=== PATIENT | male | born 1955 | race Asian ===

== ENCOUNTER 2017-09-15 02:27 | Emergency (ER) | payer MEDICAID ==
[~2017-09-15] VITALS: Ht 167.6 cm; Wt 81.6 kg
[2017-09-15 02:31] VITALS: BP 119/93
[2017-09-15] MEDS ORDERED: HYDROCODONE/APAP 10/325MG 1 EA TABLET ONE (02:56)
[2017-09-15] MEDS ORDERED: HYDROCODONE/APAP 10/325MG 1 EA TABLET PO ONE (03:00)
== END 2017-09-15 03:21 | disposition home or self-care (01) ==
LOC: ER 02:30
DX: G89.29 Other chronic pain (principal); I10 Essential (primary) hypertension; Z88.8 Allergy status to other drugs, medicaments and biological substances
CPT/HCPCS: 99282; A4606; Z7610

== ENCOUNTER 2017-10-07 15:10 | Emergency (ER) | payer MEDICAID, OTHER ==
[~2017-10-07] VITALS: Ht 165.1 cm; Wt 83.9 kg
[2017-10-07 15:21] VITALS: BP 123/75
[2017-10-07] MEDS ORDERED: IBUPROFEN 600 MG TABLET PO ONE ×2 (15:35→16:00)
[2017-10-07] MEDS ORDERED: CYCLOBENZAPRINE 10 MG TABLET ONE (15:35)
[2017-10-07] MEDS ORDERED: CYCLOBENZAPRINE 10 MG TABLET PO ONE (16:00)
== END 2017-10-07 15:41 | disposition home or self-care (01) ==
LOC: ER 15:17
DX: M13.872 Other specified arthritis, left ankle and foot (principal); M13.871 Other specified arthritis, right ankle and foot; M46.96 Unspecified inflammatory spondylopathy, lumbar region; G89.29 Other chronic pain; Z88.8 Allergy status to other drugs, medicaments and biological substances; Z60.2 Problems related to living alone
CPT/HCPCS: 99283; A4606; Z7610

== ENCOUNTER 2020-10-21 15:33 | Emergency (ER) | payer OTHER ==
[~2020-10-21] VITALS: Ht 167.6 cm; Wt 95.3 kg
--- NOTE | 2020-10-21 17:08 | NUR ---
"Depressed/Suicidal Ideation- run into traffic". PT AAOX4, VSS. RR EVEN & UNLABORED. DENIES CP, SOB, DIZZINESS, N/V/D AT THIS TIME. PT SEEN & EVAL'D BY DR. MAHARAJ. PT CALM & COOPERATIVE, NAD NOTED AT THIS TIME. SITTER AT BS & WILL CONT TO MONITOR.
[2020-10-21 17:25] LABS: BASOPHILS % (AUTO) 0.6 % (0.0-2.0); EOSINOPHILS % (AUTO) 1.8 % (0.0-6.0); HEMATOCRIT 44 % (39-51); HEMOGLOBIN 14.5 g/dL (13.5-17.5); LYMPHOCYTES # (AUTO) 0.4 K/uL (0.8-4.8); LYMPHOCYTES % (AUTO) 6.4 % (20.0-44.0); MEAN CORPUSCULAR HGB CONC 33 g/dl (31.0-36.0); MEAN CORPUSCULAR VOLUME 91 fL (80-96); MONOCYTES # (AUTO) 0.5 K/uL (0.1-1.30); MONOCYTES % (AUTO) 7.6 % (2.0-12.0); NEUTROPHILS # (AUTO) 5.7 K/uL (1.8-8.9); NEUTROPHILS % (AUTO) 83.6 % (43.0-81.0); PLATELET COUNT (AUTO) 375 K/uL (150-450); RED BLOOD CELL COUNT(AUTO) 4.86 MIL/uL (4.5-6.0); WHITE BLOOD COUNT (AUTO) 6.8 K/uL (4.3-11.0)
[2020-10-21 17:33] LABS: CALCIUM, SERUM 9.4 mg/dL (8.5-10.1); CARBON DIOXIDE 23 mmol/L (21-32); CHLORIDE 106 mmol/L (98-107); GLUCOSE 105 mg/dL (74-106); POTASSIUM 4.2 mmol/L (3.5-5.1); SODIUM SERUM 140 mmol/L (136-145); UREA NITROGEN, BLOOD 22 mg/dL (7-18)
[2020-10-21 17:38] LABS: ACETAMINOPHEN < 10 ug/ml (10-30); ALCOHOL, BLOOD < 3 mg/dL (0-0)
--- NOTE | 2020-10-21 18:35 | NUR ---
Patient is resting comfortably in bed with eyes closed. Easily aroused. VSS. PT HAD MEAL, NIKUNJ WELL. NAD NOTED AT THIS TIME.
--- NOTE | 2020-10-21 19:47 | NUR ---
COVID SWAB COLLECTED AND SENT TO LAB
--- NOTE | 2020-10-21 20:03 | NUR ---
FAXED FACESHEET AND CLINICALS TO [facility]
--- NOTE | 2020-10-22 02:02 | NUR ---
ACCEPTED ELIJAH BALLESTEROS, NUMBER FOR REPORT
--- NOTE | 2020-10-22 02:12 | NUR ---
[facility] ETA 30-35 MIN.
--- NOTE | 2020-10-22 02:22 | NUR ---
REPORT GIVEN TO SADE CANNON
--- NOTE | 2020-10-22 02:46 | NUR ---
EMS AT BEDSIDE, REPORT GIVEN
[2020-10-22 05:55] VITALS: BP 118/67
== END 2020-10-22 02:50 ==
LOC: ER 17:14
DX: R45.851 Suicidal ideations (principal); F14.10 Cocaine abuse, uncomplicated; I10 Essential (primary) hypertension; G89.29 Other chronic pain; M54.5 Low back pain; Z20.822 Contact with and (suspected) exposure to COVID-19
CPT/HCPCS: 36415; 80048; 80143; 80307; 80320; 85025; 87426; 99285; C9803; G0480

== ENCOUNTER 2021-11-17 08:43 | Emergency (ER) | payer OTHER ==
[~2021-11-17] VITALS: Ht 167.6 cm; Wt 70.3 kg
--- NOTE | 2021-11-17 08:48 | NUR ---
TO ER BED 18, BIBS FOR MEDICAL CLEARANCE TO GO TO [facility], SI PLAN TO RUN INTO TRAFFIC, AAOX3, BREATHING EVEN AND NON LABORED, SECURITY AT BEDSIDE FOR WANDING.
[2021-11-17 08:53] VITALS: BP 132/81
--- NOTE | 2021-11-17 09:01 | NUR ---
URINE COLLECTED AND SENT TO LAB
[2021-11-17] MEDS: QUETIAPINE FUMARATE 100 MG TABLET PO SCH (09:30)
[2021-11-17] MEDS ORDERED: QUETIAPINE FUMARATE 100 MG TABLET ONE (09:33)
[2021-11-17 09:35] LABS: BILIRUBIN,URINE NEGATIVE (NEGATIVE); COLOR,URINE YELLOW (YELLOW); LEUKOCYTE ESTERASE ,URINE NEGATIVE (NEGATIVE); NITRITE, URINE NEGATIVE (NEGATIVE); PH,URINE 6.5 (5.0-8.0); PROTEIN,URINE NEGATIVE (NEGATIVE); UGLUCOSE NEGATIVE (NEGATIVE)
--- NOTE | 2021-11-17 09:38 | NUR ---
COVID SWAB DONE AND SENT
[2021-11-17 10:01] LABS: BACTERIA,URINE Few /HPF (None Seen); RBC,URINE 0-2 /HPF (0-2); SQUAMOUS EPITHELIAL CELL,UR Few /HPF (None Seen); WBC,URINE 0-2 /HPF (0-3)
[2021-11-17 10:13] LABS: BASOPHILS % (AUTO) 0.6 % (0.0-2.0); EOSINOPHILS % (AUTO) 3.9 % (0.0-6.0); HEMATOCRIT 41 % (39-51); HEMOGLOBIN 13.1 g/dL (13.5-17.5); LYMPHOCYTES # (AUTO) 0.3 K/uL (0.8-4.8); MEAN CORPUSCULAR HGB CONC 32 g/dl (31.0-36.0); MEAN CORPUSCULAR VOLUME 93 fL (80-96); MONOCYTES # (AUTO) 0.4 K/uL (0.1-1.30); NEUTROPHILS % (AUTO) 77.5 % (43.0-81.0); PLATELET COUNT (AUTO) 274 K/uL (150-450); RED BLOOD CELL COUNT(AUTO) 4.39 MIL/uL (4.5-6.0); WHITE BLOOD COUNT (AUTO) 3.9 K/uL (4.3-11.0)
[2021-11-17 10:34] LABS: ALANINE AMINOTRANSFERASE 30 U/L (12-78); ALBUMIN 3.5 g/dL (3.4-5.0); ALCOHOL, BLOOD < 3 mg/dL (0-0); ALKALINE PHOSPHATASE 89 U/L (46-116); ASPARTATE AMINOTRANSFERASE 30 U/L (15-37); BILIRUBIN,DIRECT 0.2 mg/dL (0.0-0.2); BILIRUBIN,TOTAL 0.6 mg/dL (0.2-1.0); CALCIUM, SERUM 9.2 mg/dL (8.5-10.1); CARBON DIOXIDE 28 mmol/L (21-32); CHLORIDE 102 mmol/L (98-107); GLUCOSE 239 mg/dL (74-106); POTASSIUM 3.3 mmol/L (3.5-5.1); SODIUM SERUM 140 mmol/L (136-145); UREA NITROGEN, BLOOD 11 mg/dL (7-18)
[2021-11-17 10:37] LABS: ACETAMINOPHEN < 10 ug/ml (10-30)
--- NOTE | 2021-11-17 11:55 | NUR ---
Director Child Abuse Therapy Consult MARIO consult requested for pt. [facility]. Pt. is a 66 y.o. male who was admitted for C/O suicidal ideation with a plan to run into traffic. MARIO met with pt. at bedside. The pt. appears unkempt and is alert and orientated x2. Pt. made did not make contact, remained calm, kept falling asleep and required to be woken up throughout assessment. The patient had depressed mood and flat affect. MARIO assessed for SI/ HI (suicidal/ homicidal ideation) in which pt. did acknowledge having thoughts of suicide but denied plan. Pt. denied HI. During assessment, pt. stated he had no family, or persons of and reported not having a place to stay. Pt. stated he is independent with ambulation and did not report receiving financial assistance. Pt. reported no hx of substance abuse. Pt. reported a hx of psychiatric dx including bipolar disorder, pt. reported having visual or auditory hallucinations. DC plan: When asked about pt.'s plans after being discharged pt. he did not want to return to his current living arrangement and requested placement in a shelter or independent living. MARIO offered long-term placement and pt. was agreeable. MARIO provided pt. with TAP card and directions to go to [facility] ([address] [place] [address]). Pt is agreeable to plan. MARIO provided pt. with long-term resources in which pt. accepted them. Pt. signed the homeless waiver and was placed in his chart. MARIO faxed clinicals to [facility] TEL:[phone] fax:[phone] for for voluntary psychiatric treatment at [facility] [[address] [place] [address] FAX:[phone]]. Year-round shelters: [facility] [address] [place] [address] ; [facility] [address] [place] [address]; [facility] Ev[facility]sh6496 [facility]. [facility] [address] Hygiene: [facility]: [address] [place] ; [facility] [address] [facility] [place] ; [facility] [address] [facility] . Food Resources: [employer] at [facility]- [address] [place]; Meet Each Need with Dignity ([facility]) [address] [facility]; [facility] [address] [facility]; [facility] [address] [facility]. Mental Health resources provided: [facility] [address] [place], [place] [address] ; [facility] [address] [facility] [address], [place], [place] [id number] ; [facility] [address] [place] [address] ; [facility] [address] [place], [place] [address] Healthcare Clinics: [facility] [address] [facility], [address] [place]. [place] ; [facility] [address] [facility] [address] [place] [address]; [facility] [place] [address] [place] [phone]) [phone] Counseling--Outpatient [facility] [address] [facility], [address] [place], [place] [address] (Specializes in in-depth psychotherapy for emotional distress: anxiety, depression, interpersonal conflicts, life transitions, childhood abuse) [facility] [address] [place] [address] (Assist with solving problem marital difficulties, separation & divorce, aging parents, & grief, chronic & terminal illness) [facility] [address] [place] [address] (Deal with loss & grief, anxiety, marital difficulties) Homebound/Mental Health Services [address] [facility], [address] [place] [address] (Provide in-home mental services to people who are incapable of leaving their homes) [facility] Elder[facility] [address] [place] [address] [facility] [address] [place] [address] PSYCHIATRIC OUTPATIENT SERVICES [facility] Partial Hospitalization and Intensive Outpatient Program (Managed Care and [place] Only)25[address] [facility]. [facility] [place] [facility] [phone] [facility] Partial Hospitalization and Outpatient [id number] [facility]. [address] [place], [place] [phone] [facility] Mental [facility] [place] [id number] [facility]. [address] [place], [place] [phone] [facility] Partial Hospitalization and Outpatient [address] [place], [phone] Substance Abuse resources provided included: [facility] Substance Abuse Self-Helpline ([facility]) ; CRI [facility]LP [address] [facility]. [place] [address] ; [facility] [address] [facility] [address] ; [facility] [address] [facility] [address] ; [facility] [address] [facility] [address] ; [facility] 4940 [facility] [address] ; [facility] [address] [facility] [address] ; [facility] Substance Abuse Helpline([facility] ; [facility] ; [facility] [place]; [facility]; [facility] [place]; [facility] Jkaub Elyjasmine; [facility] [place]; [facility]; [facility] [place]; [facility], [facility]. [facility] Alycia; Alcoholics Anonymous -[facility]; Gk-Pitp-Dlxaflo ; Marijuana Anonymous -[facility]; Narcotics Anonymous www.na.org;
--- NOTE | 2021-11-17 16:41 | NUR ---
ACCEPTED TO [facility] UNDER THE CARE OF DR GALICIA REPORT [phone] EXT [phone]
--- NOTE | 2021-11-17 18:55 | NUR ---
[facility] CALLED FOR TRANSPORT, ETA 90 MIN PER LILLIE.
--- NOTE | 2021-11-17 20:57 | NUR ---
Estela peace in [facility] - 11/17/21 at 2057 by VERNON pt [facility] transport [facility]
--- NOTE | 2021-11-17 20:57 | NUR ---
pt picked up by [facility] for transport to [facility]
--- NOTE | 2021-11-17 21:02 | NUR ---
REPORT GIVEN TO SARAH MASTERS [facility] [phone] EXT [phone] FOR DANISHA
== END 2021-11-17 20:55 ==
LOC: ER 08:48
DX: R45.851 Suicidal ideations (principal); F19.10 Other psychoactive substance abuse, uncomplicated; G89.29 Other chronic pain; M54.50 Low back pain, unspecified; I10 Essential (primary) hypertension
CPT/HCPCS: 99285; 85025; 80048; 80076; 81001; 36415; 87426; 80143; 80320; 80307; C9803; G0480